=== PATIENT | female | born 1965 | race Caucasian/White ===

== ENCOUNTER 2018-07-01 10:49 | Day surgery (SDC) | payer OTHER, MEDICAID, SELFPAY ==
--- NOTE | 2018-07-01 | PATH_ITS ---
[facility] Accession Number: [id number] . 01 Material submitted: . ENDOCERVICAL . 02 Diagnosis: Endocervix, LEEP: Cervical transformation zone with low to intermediate grade squamous intraepithelial lesion (TORRI 1-2), free of margins. Negative for invasive malignancy. MRV/07/05/2018 . 02 Comment: As part of routine manager of quality, Dr. Mendez has reviewed select slides from this case and agrees with the above diagnosis. . 02 Electronically signed: . Bradley Vazquez MD, PhD, Pathologist NPI- [id number] . 01 Gross description: . Received in formalin, labeled anterior posterior LEEP, short S. at 6, long S. at 12 o'clock, endocervical-untagged, are three pieces of cervical tissue. Piece #1 (1.9 x 1.1 x 0.7 cm) contains a long suture indicating 12 o'clock. Piece #2 (1.6 x 0.8 x 0.8 cm) contains a short suture indicating 6 o'clock. Piece #3 (2.1 x 1.1 x 0.7 cm) is unoriented. The mucosa is roberson-pink, smooth and shiny. The resection margins are pale maldonado and finely granular. No nodules, masses or lesions are identified. The pieces cannot be oriented, the ectocervical and endocervical margins cannot be determined, and the pieces cannot be radially oriented. Therefore, the resection margins are inked black. Section code: (A1-A2) piece #1, serially sectioned; (A3) piece #2, serially sectioned; (A4) piece #3 serially sectioned. Specimen entirely submitted. ([id number]) /MRV . 02 Pathologist provided ICD-10: N87.1 . 02 CPT . 778516 Specimen Comment: A duplicate report has been generated due to demographic updates. Performed at: 01 [facility] [address] [id number] MD Jens Kay MD Phone: [phone] Performed at: [facility] [address] [place], [place] [id number] MD Thierry Mendez MD Phone: [phone]
--- NOTE | 2018-07-01 10:30 | PM.PREOP ---
Pre-operative Note Interval Note Pre-op Check: Yes History & Physical exam performed today by Physician Changes: No
[2018-07-01 11:05] VITALS: BMI 27.3
[2018-07-01 11:27] VITALS: BP 140/76; PULSE 58; RESP 12; TEMP 36.4; O2SAT 97
[2018-07-01] MEDS: LACTATED RINGERS 1,000 ML 42 ML IV (11:28)
--- NOTE | 2018-07-01 11:43 | SUR.OPER ---
Lithotomy on padded OR bed, head on pillow, arms secured on padded arm boards at <90 degrees abduction. Legs secured in padded yellow fins stirrups.
[2018-07-01 12:33] VITALS: BP 116/66; PULSE 64; RESP 17; TEMP 36.3; O2SAT 97
[2018-07-01 12:38] VITALS: BP 120/84; PULSE 63; RESP 14; O2SAT 96
[2018-07-01 12:45] VITALS: BP 130/77; PULSE 54; RESP 12; TEMP 36.7; O2SAT 97
[2018-07-01 13:00] VITALS: BP 140/84; PULSE 51; RESP 12; TEMP 36.4; O2SAT 100
--- NOTE | 2018-07-02 10:50 | P.OP_ITS ---
Operative Date/Time/Diagnoses Date of procedure: 07/01/18 Time of procedure: 12:30 Pre-op diagnosis: TORRI 2 Post-op diagnosis: same Procedure: Procedures Operation Date: 07/01/18 11:45 Actual Procedures Side Surgeon p LEEP Procedure Anita Barajas MD Indications: TORRI 2 by colposcopic biopsy Surgeon: Anita Barajas Anesthesia Type: General (LMA) Operative Notes Findings: Lugol's light areas surrounding the endocervical canal Closure Type: not applicable Specimen(s): other (Anterior lip of the cervix tagged with a long suture, posterior lip of the cervix tagged with a short suture, endocervical component and tagged) Applied: catheter (In and now) Estimated blood loss (mL): 5 Blood products transfused: none Procedure in detail: After informed consent was obtained, patient was taken to the operating room where she was placed in the dorsal supine position. After adequate LMA general anesthesia was achieved, she was placed in the dorsal lithotomy position, and prepped and draped in the usual sterile fashion. A time -out was performed. A plastic coated bivalve speculum was placed into the vagina and a plastic coated single-tooth tenaculum was placed on the anterior lip of the cervix. Lugol solution was applied to the cervix and there were Lugol's light areas surrounding the cervical os. Using the 1 cm loop, 2 swipes were taken of the cervix including the anterior and posterior lips. The an endocervical component was also obtained. The specimens were tagged at the 12 o' clock position with a long suture and a short suture at the 6 o'clock position. The Bovie was used for hemostasis on the base of the cone. Hemostasis was achieved. The plastic coated single-tooth tenaculum was removed the anterior lip of the cervix. The plastic coated bivalve speculum was removed from the vagina. Sponge, lap, and instrument counts were correct x2. The patient tolerated the procedure well, and was taken to PACU in stable condition. Complications: none Post-operative Condition: stable Disposition: PACU Plan for aftercare: Home after recovery
--- NOTE | 2018-10-07 09:08 | PM.HP.1 ---
History of Present Illness Date Patient Seen: 07/01/18 Time Patient Seen: 11:45 Chief complaint: [id number] Narrative: Patient is a 53-year-old with TORRI 2 by colposcopic biopsy here for a LEEP cone biopsy of the cervix Meds Home Medications Medication Instructions Recorded Confirmed Type multivitamin 1 tab PO DAILY 07/01/18 08/02/18 History Allergies Allergy/AdvReac Type Severity Reaction Status Date / Time No Known Drug Allergies Allergy Verified 08/02/18 10:46 Exam Vital Signs (past 8 hours): Oxygen Delivery Method Room Air Narrative Exam Narrative: HEENT: No thyromegaly, no anterior cervical or supraclavicular lymphadenopathy. Lungs:Clear to auscultation bilaterally, no wheezes. Cardiovascular: Regular rate and rhythm, no murmurs, rubs, or gallops. Abdomen: No scars. No hepatosplenomegaly. No masses palpable. External genitalia: Normal Vagina: Normal Cervix: Normal Bimanual exam: 6 Week size uterus. Mobile. Rectal: No masses. 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 The risks including bleeding and infection. She understands these risks and agrees to proceed. A full PAR-Q was held and consent form was signed.
== END 2018-07-01 13:25 | disposition home or self-care (01) ==
PROVIDERS: PCP Family Medicine; Visit Provider Obstetrics & Gynecology
PROC: 0UBC7ZZ Excision of Cervix, Via Natural or Artificial Opening (ICD-10-PCS; CPT 57522; principal; 2018-07-01 11:45)
DX: N87.1 Moderate cervical dysplasia (principal)
CPT/HCPCS: 57522; 88307; J1100; J1885; J2405; J2704

== ENCOUNTER → 2020-12-09 09:06 | Outpatient (CLI) | payer OTHER, MEDICAID, SELFPAY ==
[2020-12-09 12:15] LABS: COVID19 -Nasal RAPID Negative (Negative)
== END ==
PROVIDERS: PCP Family Medicine; Visit Provider Obstetrics & Gynecology
DX: Z01.812 Encounter for preprocedural laboratory examination (principal); Z20.822 Contact with and (suspected) exposure to COVID-19
CPT/HCPCS: 87635

== ENCOUNTER 2020-12-10 11:16 | Day surgery (SDC) | payer OTHER, MEDICAID, SELFPAY ==
[2020-12-10] VITALS (7 sets, daily range): BP systolic 103–135; BP diastolic 46–79; PULSE 58–73; RESP 10–16; TEMP 36.4–36.6; O2SAT 97–99; BMI 31.1
--- NOTE | 2020-12-10 | PATH_ITS ---
[facility] Accession Number: [id number] . 01 Material submitted: . cervix - LEEP CERVICAL CONE BIOPSY . 01 Clinical history: . SUTURE AT 12 O'CLOCK . 02 Diagnosis: LEEP Cervical Cone Biopsy: Involvement by low-grade squamous intraepithelial lesion/TORRI-1 circumferentially (in the 12-3 o'clock, 3-6 o'clock, 6-9 o'clock, and 9-12 o'clock quadrants). Changes consistent with previous instrumentation are present in the 6-9 and 9-12 o'clock quadrants. Low-grade squamous intraepithelial lesion/TORRI-1 focally involves tissue margins and is indeterminate as to endocervical or ectocervical margin due to obscuring regions of tissue disruption. Negative for high grade dysplasia or invasive tumor. Negative for p16 block immunostaining. [facility] 12/16/2020 1427 Local . 02 Comment: This patient's previous LEEP biopsy ([id number]; 07/01/18) was reviewed. . 02 Electronically signed: . Francisca Cerna MD, Pathologist NPI- [id number] . 01 Gross description: . The specimen is received in formalin, labeled LEEP cone biopsy of cervix and consists of a 1.9 x 1.5 x 0.6 cm maldonado-pink hemorrhagic smooth portion of ectocervix with a suture designated 12 o'clock and a 0.5 x 0.2 cm os. The endocervical margin is inked blue. The ectocervical margin is inked black. The specimen is radially sectioned and entirely submitted. . A1: 12-3 o'clock. A2: 3-6 o'clock. A3: 6-9 o'clock. A4: 9-12 o'clock. ([id number]) /MRV 12/11/2020 1200 Local . 02 Microscopic: . An immunohistochemical stain for p16 is performed to evaluate for block reactivity. The control stained with appropriate reactivity. . Blocks A1, A2, A3 and A4: Negative for block immunostaining. . The absence of p16 block immunostaining mitigates against the presence of high risk HPV DNA in this biopsy. . * This test was developed and its performance characteristics determined by [facility]. It has not been cleared or approved by the U.S. Food and Drug Administration. The FDA has determined that such clearance or approval is not necessary. This test is used for clinical purposes. It should not be regarded as investigational or for research. . 02 Pathologist provided ICD-10: N87.1, N87.0, B97.7 . 02 CPT . 215385, I78097 Performed at: 01 [facility] [address] [place] [address], [place], [place] [id number] MD Jens Kay MD Phone: [phone] Performed at: 02 [facility] [place] [address] [place] [id number] MD Belle Killian MD Phone: [phone]
[2020-12-10] MEDS: LACTATED RINGERS 1,000 ML 100 ML IV (11:53)
--- NOTE | 2020-12-10 13:04 | PM.HP.1 ---
History of Present Illness History of Present Illness Date Patient Seen: 12/10/20 Time Patient Seen: 13:06 Chief complaint: SDC Narrative: Patient is a 55-year-old 0 with TORRI 1-2 of the cervix and TORRI 1 of the vaginal wall She presents for LEEP cone biopsy of the cervix and a CO2 laser vaporization of the left vaginal wall. 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) Postmenopausal Wears glasses Surgical History (Updated 08/04/20 @ 20:45 by Ghazal Wells) Anesthesia History of appendectomy (~2000) History of bilateral breast reduction surgery (~1999) Status post LEEP (loop electrosurgical excision procedure) of cervix Family & Social History Family History (Updated 08/04/20 @ 20:47 by Ghazal Wells) Mother Breast cancer Grandfather Cancer Grandfather Stroke Tobacco & Substance use: Smoking Status Never smoker alcohol intake current alcohol intake frequency holiday/special occasion Substance Use Type does not use Meds Home Medications and Allergies Home Medications Medication Instructions Recorded Confirmed Type multivitamin 1 tab PO DAILY 07/01/18 12/09/20 History calcium carbonate-vitamin D2 1 tab PO DAILY 12/10/20 12/10/20 History [Calcium + Vitamin D] omega-3 fatty acids [Fish Oil] 1,000 mg PO DAILY 12/10/20 12/10/20 History Allergies Allergy/AdvReac Type Severity Reaction Status Date / Time No Known Drug Allergies Allergy Verified 12/09/20 11:54 Exam Vital Signs (past 8 hours): - 12/10/20 11:43 Temperature 97.8 F Pulse Rate 69 Respiratory Rate 16 Blood Pressure 112/79 Pulse Oximetry 97 Oxygen Delivery Method Room Air Oxygen Flow Rate 0 Narrative Exam Narrative: HEENT: No thyromegaly, no anterior cervical or supraclavicular lymphadenopathy. Lungs:Clear to auscultation bilaterally, no wheezes. Cardiovascular: Regular rate and rhythm, no murmurs, rubs, or gallops. Abdomen: Well-healed scars. No hepatosplenomegaly. No masses palpable. External genitalia: Normal Vagina: Normal Cervix: Normal Bimanual exam: 6 Week size anteverted uterus. Mobile. Rectal: No masses. Pathology: TORRI 1 of the vaginal wall, TORRI 1-2 of the cervix Assessment & Plan Assessment & Plan narrative: Assessment: 55-year-old 0 with TORRI 1-2 of the cervix and TORRI 1 of the vaginal wall Plan: Colposcopy LEEP cone biopsy of the cervix CO2 laser vaporization of the left vaginal wall COVID-19 COVID-19 status: Negative Result date/Date tested (Pos, Neg/Pending): 12/09/20 Time Spent With Patient Time with patient: 15-24 minutes
--- NOTE | 2020-12-10 13:08 | PM.PREOP ---
Pre-operative Note COVID-19 COVID-19 status: Negative Result date/Date tested (Pos, Neg/Pending): 12/09/20 Interval Note History & Physical reviewed/Exam performed by Physician: Yes Changes to H&P: No H&P completed within 30 days and has changed as indicated here:: 12/10/20
[2020-12-10] MEDS: CEFAZOLIN 2 GM/100 ML FROZ.PIGGY IV (13:15)
--- NOTE | 2020-12-10 13:52 | SUR.OPER ---
Lithotomy on padded OR bed, head on pillow, arms secured on padded arm boards at <90 degrees abduction. Legs secured in padded yellow fins stirrups.
--- NOTE | 2020-12-10 13:53 | SUR.OPER ---
see laser rep documentation for laser times and power settings
[2020-12-10] MEDS: POTASSIUM IODIDE/IODINE 473 ML SOLUTION TOP (13:58)
--- NOTE | 2020-12-10 14:10 | PM.GYNOP.1 ---
Operative Date/Time/Diagnoses Date of procedure: 12/10/20 Time of procedure: 14:10 Pre-op diagnosis: TORRI 1 of the cervix Vain 1 of the vagina Post-op diagnosis: same Procedure & Clinicians Procedure: Procedures Operation Date: 12/10/20 13:00 Actual Procedures Side Surgeon p C02 laser vaporization of left vaginal wall & LEEP cone BX of Cervix removal of 2 sebacous cystsy Anita Barajas MD Indications: TORRI 1 of the cervix Vain 1 of the vagina Surgeon: Anita Barajas Anesthesia Type: General (LMA) Operative Notes Findings: Lugol's light area of the left vaginal wall adjacent to the 3 o'clock position of the cervix Lugol's light area surrounding the cervical os Closure Type: not applicable Specimen(s): other (LEEP cone biopsy of the cervix) Estimated blood loss (mL): 10 Blood products transfused: none Procedure in detail: After informed consent was obtained, the patient was taken to the operating room where she was placed in the dorsal supine position. After adequate LMA general anesthesia was achieved, she was placed in the dorsal lithotomy position, and prepped and draped in the usual sterile fashion. A time-out was performed. A plastic coated bivalve speculum was placed into the vagina. Lugol's was applied to the cervix. 5% ascetic acid was applied to the left vaginal wall. Under colposcopic examination there were aceto-white areas. These were marked with a permanent marker. Lugol's was applied to the cervix and there was a Lugol's light area surrounding the cervical os. A plastic coated single-tooth tenaculum was placed on the anterior lip of the cervix. Using the carbon dioxide laser with a 4 mm spot, the vaginal wall was lasered in the marked area. Using the 15 mm loop, a LEEP cone biopsy of the cervix was performed and tagged at the 12 o'clock position. The Bovie was used for hemostasis on the cervix. The plastic coated single-tooth tenaculum was removed from the anterior lip of the cervix. The plastic coated bivalve speculum was removed from the vagina. Sponge, lap, and instrument counts were correct x2. The patient tolerated the procedure well, and was taken to PACU in stable condition. Complications: none Post-operative Condition: stable Disposition: PACU Plan for aftercare: Home after recovery
[2020-12-10] MEDS: OXYCODONE/ACETAMINOPHEN 5/325 TABLET 1 TAB PO (14:35)
--- NOTE | 2020-12-10 14:47 | SUR.PHASEI ---
Pt sitting up drinking juice without problems, denies nausea but does have a headache which she took Percocet for approx. 10 minutes ago. Sitting up talking with staff. VSS.
== END 2020-12-10 15:04 | disposition home or self-care (01) ==
PROVIDERS: PCP Family Medicine; Referring Provider Obstetrics & Gynecology; Visit Provider Obstetrics & Gynecology
PROC: 0UBC7ZZ Excision of Cervix, Via Natural or Artificial Opening (ICD-10-PCS; CPT 57522; principal; 2020-12-10 13:00)
DX: N87.1 Moderate cervical dysplasia (principal); N89.0 Mild vaginal dysplasia; B97.7 Papillomavirus as the cause of diseases classified elsewhere; Z86.718 Personal history of other venous thrombosis and embolism
CPT/HCPCS: 57522; 57061; J0690; J1100; J2405; J2704; J3010